=== PATIENT | male | born 1950 | race Caucasian/White ===

== ENCOUNTER 2021-05-09 20:49 | Emergency (ER) | payer OTHER ==
[~2021-05-09] VITALS: Ht 175.3 cm; Wt 99.8 kg
[~2021-05-09 20:49] MED LIST: ALLERGY RELIEF10 M3 PO; ASPIRIN325 PO; ATENOLOL 50MG T50 M1 PO; CLOPIDOGREL75 MG PO; GABAPENTIN100 MG PO; LANTUS SUBQ; LISINOPRIL40 MG PO; novolog flex pen SUBQ
[2021-05-09 20:53] VITALS: BP 141/72
[2021-05-09] MEDS ORDERED: CARVEDILOL12.5 MG PO (21:00)
[2021-05-09] MEDS ORDERED: PROTONIX 20 MG20 MG PO (21:00)
--- NOTE | 2021-05-10 14:38 | EKG ---
[place] [address] ELECTROCARDIOGRAM REPORT Name: TAYO HELTON Room: [facility]#: [id number] Admission: 05/09/21 Attend Phys: Discharge: 05/09/21 Date of : 50 Date of Service: 05/09/212054 Report #: [id number] THIS REPORT FOR: //name// [facility] ED Test Date: 2021-05-09 Test Time: 20:55:01 Pat Name: TAYO HELTON Department: Room: Gender: Epic Trainer: [place] : 1950 Requested By: Vicki Salcedo Order Number: [id number] MD: Lion Briones Measurements Intervals [place] Rate: 79 P: -16 NV: 216 QRS: -26 QRSD: 102 T: 172 QT: 382 QTc: 438 Interpretive Statements Sinus rhythm Ventricular premature complex Borderline prolonged NV interval Inferior infarct, old Lateral leads are also involved Compared to ECG 02/16/2009 21:04:39 Ventricular premature complex(es) now present Myocardial infarct finding still present Electronically Signed On 05-10-2021 14:37:50 [employer] by Lion Briones [email or web address] <ELECTRONICALLY SIGNED> By: Lion Briones MD, [facility] 05/10/21 1437 [id number] 54 Lion Briones MD, [facility] /EPI
== END 2021-05-09 22:32 | disposition left against medical advice (07) ==
LOC: M.ERS 20:49
DX: R07.89 Other chest pain (principal); Z53.21 Procedure and treatment not carried out due to patient leaving prior to being seen by health care provider